=== PATIENT | female | born 1975 | race Caucasian/White ===

== ENCOUNTER → 2017-10-17 | Outpatient (CLI) | payer BC ==
--- NOTE | 2017-10-17 14:46 | KCIC ---
DATE: October 17, 2017 EXAM: BREAST BILATERAL, DIGITAL DIAGNOSTIC BILATERAL HISTORY: Bilateral breast palpable abnormalities COMPARISON: January 01, 2015. Ultrasound from January 01, 2015 as well. TECHNIQUE: 2D digital CC and MLO views of each breast were obtained. Right exaggerated CC view was obtained. Compression right MLO and exaggerated CC views were obtained. Limited bilateral ultrasound was performed. This study was interpreted with the benefit of Computerized Aided Detection (CAD). FINDINGS: The breast parenchyma is heterogeneously dense, category C, which may obscure small masses. Within the upper outer right breast 6.5 cm from the nipple there is a spiculated mass measuring 2.7 cm in size. Cyst in the left breast documented previously has decreased in size. Scattered calcifications are noted throughout both breasts, none of which are tightly clustered and overall are relatively stable. Limited ultrasound was then performed of each breast. In the right breast at the 10:00 position 7 cm from the nipple is a hypoechoic irregular mass distorting parenchymal bands. This has internal color flow. It measures up to 1.9 x 1.7 x 2.4 cm in size. There is a right axillary node measuring 5 mm in size, likely too small to sample. Within the left breast at the 2:00 position is a hypoechoic oval-shaped mass with increased through transmission. This measures 13 mm. There is also a simple cyst at the 1:00 position measuring 11 mm in size. Findings and recommendation of biopsy of the right breast and follow-up for the left breast was discussed with Meera Dickson's nurse, Vikki, at 1440 hours. Patient was also notified by the technologist of recommendation of biopsy. IMPRESSION: 1. Right breast mass for which ultrasound-guided biopsy is recommended. 2. Probable complex cyst in the left breast for which six-month follow-up is recommended. BI-RADS CATEGORY: 5 HIGHLY SUGGESTIVE MALIGNANCY RECOMMENDED FOLLOW-UP: BIO BIOPSY RECOMMENDED PQRS compliance statement: Patient information was entered into a reminder system with a target due date for the next mammogram. Mammography is a sensitive method for finding small breast cancers, but it does not detect them all and is not a substitute for careful clinical examination. A negative mammogram does not negate a clinically suspicious finding and should not result in delay in biopsying a clinically suspicious abnormality. "Our facility is accredited by the [employer] Mammography [employer]."
== END | disposition home or self-care (01) ==
LOC: KCIC MAMMO 12:59
PROVIDERS: ATTEND Nurse Practitioner Family
DX: N63.10 Unspecified lump in the right breast, unspecified quadrant (principal); N63.20 Unspecified lump in the left breast, unspecified quadrant
CPT/HCPCS: 76641; G0204; 77066

== ENCOUNTER → 2017-11-15 | Outpatient (CLI) | payer BC | END | disposition home or self-care (01) | LOC: US 08:31 | DX: N63.11 Unspecified lump in the right breast, upper outer quadrant (principal) | CPT/HCPCS: 19081; 76942; 77065; 88305; 88341; 88342; 88361; C1713 ==

== ENCOUNTER 2017-12-29 09:46 | Day surgery (SDC) | payer BC ==
[~2017-12-29 09:46] MED LIST: LIDOCAINE 1% PF 2 ML VIAL. ID; MORPHINE SULFATE 2 MG/ML DISP.SYRIN. IV; ONDANSETRON PF 4 MG/2 ML VIAL. IV; PROCHLORPERAZINE 10 MG/2 ML VIAL. IV; ceFAZolin 2GM PREMIX 2 GM/50 ML BAG IV; fentaNYL PF VIAL 100 MCG/2 ML VIAL IV
[2017-12-29] MEDS: IV RINGERS,LACTATED 1000ML 1,000 ML IV ×2 (10:27)
[2017-12-29] MEDS ORDERED: fentaNYL PF VIAL 100 MCG/2 ML VIAL ×2 (10:41)
[2017-12-29] MEDS ORDERED: DEXAMETHASONE SOD PHOS 20 MG/5 ML VIAL. ×2 (10:41)
[2017-12-29] MEDS ORDERED: MIDAZOLAM HCL/PF 2 MG/2 ML VIAL. ×2 (10:41)
[2017-12-29] MEDS ORDERED: PROPOFOL 20 ML IV ×2 (10:41)
[2017-12-29] MEDS ORDERED: ONDANSETRON PF 4 MG/2 ML VIAL. ×2 (10:41)
[2017-12-29] MEDS ORDERED: FAMOTIDINE 20 MG/2 ML VIAL ×2 (10:41)
[2017-12-29] MEDS ORDERED: LIDOCAINE 2% PF Vial for OR 5 ML VIAL. ×2 (10:41)
[2017-12-29 10:51] LABS: NEG OBC UR NEG; POS OBC UR POS; U PREG PATIENT NEGATIVE (NEG)
[2017-12-29] MEDS ORDERED: SEVOFLURANE 61 TO 120 MINUTES. IH ×2 (11:40)
[2017-12-29] MEDS: BUPIVAC MPF-EPI 0.5%-1:200000 30 ML VIAL. INJ ×2 (12:06)
[2017-12-29] MEDS: fentaNYL PF VIAL 100 MCG/2 ML VIAL IV ×4 (12:25→12:31)
[2017-12-29] MEDS: oxyCODONE/APAP 5/325 1 TAB TABLET PO ×2 (13:32)
== END 2017-12-29 16:30 | disposition home or self-care (01) ==
LOC: SURG 09:46
DX: D05.01 Lobular carcinoma in situ of right breast (principal); Z86.69 Personal history of other diseases of the nervous system and sense organs; Z98.890 Other specified postprocedural states; Z87.440 Personal history of urinary (tract) infections
CPT/HCPCS: 19120; 81025; 88307; C1769; J0690; J1100; J2250; J2405; J2704; J3010; J3490; S0028

== ENCOUNTER 2018-01-09 08:45 | Day surgery (SDC) | payer BC ==
[~2018-01-09 08:45] MED LIST changes: +DEXAMETHASONE SOD PHOS 20 MG/5 ML VIAL.; +LIDOCAINE 2% PF Vial for OR 5 ML VIAL.; +MIDAZOLAM HCL/PF 2 MG/2 ML VIAL.; -MORPHINE SULFATE 2 MG/ML DISP.SYRIN. IV; +MORPHINE SULFATE 4 MG/ML DISP.SYRIN. IV; +ONDANSETRON PF 4 MG/2 ML VIAL.; +PROPOFOL 20 ML IV; +fentaNYL PF VIAL 100 MCG/2 ML VIAL
[2018-01-09] MEDS: IV RINGERS,LACTATED 1000ML 1,000 ML IV (09:27)
[2018-01-09 09:32] LABS: NEG OBC UR NEG; POS OBC UR POS; U PREG PATIENT NEGATIVE (NEG)
[2018-01-09] MEDS ORDERED: NEOMY/BACITR/POLYMYXIN OINT PACKET. TP (09:57)
[2018-01-09] MEDS: BUPIVAC MPF-EPI 0.5%-1:200000 30 ML VIAL. INJ (10:38)
[2018-01-09] MEDS: HEPARIN SODIUM 5,000 UNIT in IV NORMAL SALINE 500ML BAG 500 ML IRR (10:38)
[2018-01-09] MEDS: BUPIVACAINE MPF 0.5% 30 ML VIAL. (10:41)
[2018-01-09] MEDS ORDERED: SEVOFLURANE 31 TO 60 MINUTES. IH (10:55)
== END 2018-01-09 12:12 | disposition home or self-care (01) ==
LOC: SURG 08:45
DX: Z45.2 Encounter for adjustment and management of vascular access device (principal); G43.909 Migraine, unspecified, not intractable, without status migrainosus; Z90.11 Acquired absence of right breast and nipple; Z85.3 Personal history of malignant neoplasm of breast; Z79.899 Other long term (current) drug therapy; Z83.3 Family history of diabetes mellitus
CPT/HCPCS: 36556; 36561; 71045; 77001; 81025; C1769; C1788; J0690; J1100; J1644; J2250; J2405; J2704; J3010; J3490; J7040; J7120

== ENCOUNTER → 2018-05-21 | Outpatient (CLI) | payer BC ==
[~2018-05-21] MED LIST changes: +CONTRAST GIVEN. MC; -DEXAMETHASONE SOD PHOS 20 MG/5 ML VIAL.; -LIDOCAINE 1% PF 2 ML VIAL. ID; -LIDOCAINE 2% PF Vial for OR 5 ML VIAL.; -MIDAZOLAM HCL/PF 2 MG/2 ML VIAL.; -MORPHINE SULFATE 4 MG/ML DISP.SYRIN. IV; -ONDANSETRON PF 4 MG/2 ML VIAL.; -ONDANSETRON PF 4 MG/2 ML VIAL. IV; -PROCHLORPERAZINE 10 MG/2 ML VIAL. IV; -PROPOFOL 20 ML IV; -ceFAZolin 2GM PREMIX 2 GM/50 ML BAG IV; -fentaNYL PF VIAL 100 MCG/2 ML VIAL; -fentaNYL PF VIAL 100 MCG/2 ML VIAL IV
[2018-05-21] MEDS: IOHEXOL 240 MG/ML 50ML VIAL. PO (10:30)
[2018-05-21] MEDS: IOHEXOL 300 MG/ML 100ML VIAL. IV (11:24)
== END | disposition home or self-care (01) ==
LOC: NM 09:44
DX: C50.411 Malignant neoplasm of upper-outer quadrant of right female breast (principal); M47.897 Other spondylosis, lumbosacral region; Z85.3 Personal history of malignant neoplasm of breast; Z17.0 Estrogen receptor positive status [ER+]
CPT/HCPCS: 71260; 74177; 78306; 96374; A9503; Q9966; Q9967

== ENCOUNTER → 2018-09-07 | Outpatient (CLI) | payer BC ==
[2018-01-09 12:12] VITALS: BP 138/87
[~2018-09-07] MED LIST changes: +BIOT5TAB PO; -CONTRAST GIVEN. MC; +CYAN500T PO; +DOCU-109 PO; +IOHEXOL 240 MG/ML 50ML VIAL. PO ONE; +IOHEXOL 300 MG/ML 100ML VIAL. IV ONE; +KRIL1CAP31 PO; +MULT1TAB52 PO; +OXYC-323 PO; +TAMO20TA PO; +[UNRECOGNIZED DRUG - CODE] PO
--- NOTE | 2018-09-07 15:49 | RAD ---
CT of the chest, abdomen, and pelvis with contrast. 09/07/2018. INDICATION: History of breast cancer. COMPARISON STUDY: CT of the chest, abdomen, and pelvis May 21, 2018. TECHNIQUE: Multidetector CT imaging of the chest, abdomen, and pelvis was performed following the administration of IV and oral contrast FINDINGS: Heart size is normal. No pericardial effusion is identified. No pathologically enlarged mediastinal lymph nodes are appreciated. No grossly enlarged axillary adenopathy is appreciated by CT. Postsurgical changes to the right breast noted. There is no pneumothorax or pleural effusion. No acute consolidative infiltrate is identified. 3 mm noncalcified nodule right upper lobe is unchanged. No new or enlarging pulmonary nodules are identified. Solid viscera of the abdomen including the liver, spleen, kidneys, adrenal glands, and pancreas are grossly unremarkable. No evidence of bowel obstruction is seen. No acute inflammatory changes involving the bowel are identified. The bladder is unremarkable. No significant free fluid or free air is seen in the abdomen or pelvis. No evidence of acute osseous abnormality is identified. IMPRESSION: 1. No evidence of acute cardiopulmonary intra-abdominal abnormality. 2. 3 mm noncalcified pulmonary nodule right upper lobe, stable CT DOSING PQRS STATEMENT: One or more of the following individualized dose reduction techniques were utilized for this examination: 1. Automated exposure control 2. Adjustment of the mA and/or kV according to patient size 3. Use of iterative reconstruction technique Electronically signed by: Peyman Mario MD (09/07/2018 3:46 PM) [id number]
== END | disposition home or self-care (01) ==
LOC: CT 10:08
PROVIDERS: ATTEND Internal Medicine Hematology & Oncology
DX: R91.1 Solitary pulmonary nodule (principal); Z85.3 Personal history of malignant neoplasm of breast
CPT/HCPCS: 71260; 74177; Q9966; Q9967

== ENCOUNTER → 2018-10-18 | Outpatient (CLI) | payer BC ==
[2018-01-09 12:12] VITALS: BP 138/87
[~2018-10-18] MED LIST changes: -IOHEXOL 240 MG/ML 50ML VIAL. PO ONE; -IOHEXOL 300 MG/ML 100ML VIAL. IV ONE; -OXYC-323 PO; +OXYC1TAB15 PO
--- NOTE | 2018-10-18 11:36 | KCIC ---
Bilateral diagnostic digital mammograms: Reason for examination: History of right breast cancer with lumpectomy and radiation therapy. Follow-up exam. Comparison is made to previous mammographic examinations dated 10/17/2017 and 01/01/2015 and previous ultrasound examinations dated 10/17/2017 and 01/01/2015 Interpretation was made with the benefit of CAD. The skin and nipples show no abnormalities. No abnormal axillary lymph nodes are seen. The breast parenchyma is heterogeneously dense. (Breast density: Category C) There are postop and postradiation changes in the right breast . There continues to be some nodularity in the retroareolar position of the left breast corresponding with cysts seen on previous ultrasound examinations. There are no new dominant masses, suspicious calcifications or architectural distortion. Scattered punctate benign appearing calcifications are again seen. Impression: Postop and postradiation changes in the right breast. No evidence of new or recurrent malignancy. Recommend routine follow-up. Your patient's mammogram demonstrates that she has dense breast tissue (breast density category C or D), which could hide abnormalities, and if she has other risk factors for breast cancer that have been identified, she might benefit from supplemental screening tests that may be suggested by you as her ordering physician. Dense breast tissue, in and of itself, is a relatively common condition. Therefore, this information is not provided to cause undue concern, but rather to raise your awareness and to promote discussion with your patient regarding the presence of other risk factors, in addition to dense breast tissue. Your patient's mammography results will be sent to her. BI-RADS Category 2: Benign. "Our facility is accredited by the [employer] Mammography [employer]." This patient's information has been entered into a reminder system for the patient to be notified with the results of her examination and a target date for the next mammogram. Electronically signed by: Marci Rico MD (10/18/2018 11:33 AM) [id number]
== END | disposition home or self-care (01) ==
LOC: KCIC MAMMO 10:36
PROVIDERS: ATTEND Internal Medicine Hematology & Oncology
DX: R92.8 Other abnormal and inconclusive findings on diagnostic imaging of breast (principal); Z85.3 Personal history of malignant neoplasm of breast
CPT/HCPCS: 77066

== ENCOUNTER → 2019-01-25 | Outpatient (CLI) | payer BC ==
[2018-01-09 12:12] VITALS: BP 138/87
[~2019-01-25] MED LIST changes: -CYAN500T PO; +CYAN500T2 PO
--- NOTE | 2019-01-25 09:40 | RAD ---
Indication: Lump in the lateral left abdomen TECHNIQUE: Grayscale and color Doppler images of the left lateral abdominal wall. COMPARISON: CT abdomen pelvis from 09/07/2018. IMPRESSION: There is an oval-shaped isoechoic lesion measuring 3.4 x 0.9 x 2.0 cm without internal vascularity. No enhancing soft tissue mass was seen on the most recent CT from September 2018. IMPRESSION: Findings likely suggests lipoma. If there is a change in the size, repeat ultrasound is recommended. Electronically signed by: Pedro Luis Bourne DO (01/25/2019 9:38 AM) [facility]
== END | disposition home or self-care (01) ==
LOC: US 08:38
PROVIDERS: ATTEND Internal Medicine Hematology & Oncology
DX: R22.2 Localized swelling, mass and lump, trunk (principal); Z85.3 Personal history of malignant neoplasm of breast; Z90.11 Acquired absence of right breast and nipple; Z17.0 Estrogen receptor positive status [ER+]
CPT/HCPCS: 76705

== ENCOUNTER → 2020-03-09 | Outpatient (CLI) | payer BC ==
[2018-01-09 12:12] VITALS: BP 138/87
[~2020-03-09] MED LIST changes: -CYAN500T2 PO; +CYAN500T52 PO
--- NOTE | 2020-03-09 10:02 | RAD ---
EXAM: Chest CT without intravenous contrast. HISTORY: Right breast cancer. Pulmonary nodule. TECHNIQUE: Computed tomographic images of the chest were obtained without contrast. Multiplanar reformatting was performed. *One or more of the following individualized dose reduction techniques were utilized for this examination: 1. Automated exposure control. 2. Adjustment of the mA and/or kV according to patient size. 3. Use of iterative reconstruction technique. COMPARISON: 09/07/2018. FINDINGS: The heart is normal in size. The aorta is normal in caliber. There is no lymphadenopathy. There is scarring within the lateral right breast due to a lumpectomy bed. There is a nodular density within the 1:00 position of the left breast, measuring approximately 1.4 cm. There is no pneumothorax or pleural effusion. There is minimal biapical pleural parenchymal scarring. There are bone islands. There is no suspicious osseous lesion. There are few calcified granulomas. There is a 3 mm nodule within the right upper lobe (series 3, image 136). There is a 3 mm nodule within the right upper lobe along the right horizontal fissure (series 3, image 167). Is likely a benign fissural lymph node. There are multiple pleural-based nodular opacities within the posterior lower lobes due to subsegmental atelectasis. There is basilar atelectasis. The upper abdomen is unremarkable. There are few benign bone islands. No suspicious osseous lesion is seen. IMPRESSION: 1. No acute thoracic finding. 2. 3 mm right upper lobe pulmonary nodules, one of which is likely a benign fissural lymph node and the other of which is also likely benign based on appearance. Follow-up can be performed in one year given risk factors for malignancy. 3. Findings consistent with right breast conservation therapy. There is a small nodular density within the left breast at the 1:00 position which is stable in appearance. Correlate with prior mammography findings. Electronically signed by: Jacqueline Gautam MD (03/09/2020 9:59 AM) [id number]
== END | disposition home or self-care (01) ==
LOC: CT 09:25
PROVIDERS: ATTEND Internal Medicine Hematology & Oncology
DX: C50.112 Malignant neoplasm of central portion of left female breast (principal); R91.8 Other nonspecific abnormal finding of lung field; J98.11 Atelectasis; J98.4 Other disorders of lung; Z17.0 Estrogen receptor positive status [ER+]; Z92.21 Personal history of antineoplastic chemotherapy
CPT/HCPCS: 71250